=== PATIENT | male | born 1950 | race Caucasian/White ===

== ENCOUNTER 2017-10-16 20:38 | Inpatient (IN) | payer MEDICARE ==
[2017-10-16] MEDS ORDERED: Triamcinolone Acetonide 0.1% Crm 15 GM Tube TOP PRN (22:27)
[2017-10-16] MEDS ORDERED: diphenhydrAMINE 25 MG Cap PO PRN (22:27)
[2017-10-16] MEDS ORDERED: Acetaminophen 325 MG Tab PO SCH (22:30)
[2017-10-16] MEDS ORDERED: Zolpidem 5 MG Tab PO PRN (22:32)
[2017-10-16] MEDS ORDERED: Albuterol 0.083% 2.5 MG/3 ML Neb Soln NEB PRN (22:32)
[2017-10-16] MEDS ORDERED: LORazepam 2 MG/ML MDV IV PRN (22:32)
[2017-10-16] MEDS ORDERED: Ondansetron 4 MG/2 ML SDV IV PRN (22:32)
[2017-10-16] MEDS ORDERED: Morphine 2 MG/ML Syringe IVPUSH PRN (22:32)
[2017-10-16] MEDS ORDERED: Melatonin 3 MG Tab PO PRN (22:32)
[2017-10-16] MEDS ORDERED: Docusate Sodium 100 MG Cap PO PRN (22:32)
[2017-10-16] MEDS ORDERED: Ondansetron 4 MG Tab.DIS PO PRN (22:32)
[2017-10-16] MEDS ORDERED: Bisacodyl 5 MG Tab PO PRN (22:32)
[2017-10-16] MEDS ORDERED: Vancomycin 1 GM SDV IV SCH (23:00)
[2017-10-16] MEDS ORDERED: Acetaminophen 325 MG Tab PO PRN (23:00)
[2017-10-16] MEDS: Sodium Chloride 0.9% 1,000 ML IV SCH (23:33)
[2017-10-17] MEDS ORDERED: Vancomycin 1,000 MG SDV ONE (01:28)
[2017-10-17] MEDS ORDERED: Sodium Chloride 0.9% 250 ML ONE (01:29)
[2017-10-17] MEDS ORDERED: Dextrose 5% in Water 250 ML ONE (01:33)
--- NOTE | 2017-10-17 01:52 | PCM.HP ---
H&P History of Present Illness - General Date of Service: 10/16/17 Admit Problem/Dx: Admission Diagnosis/Problem Admission Diagnosis/Problem Pneumonia involving left lung Source of Information: Patient, EMS Notes Reviewed, Care Home Records, Provider History Limitations: Reports: Other (mood disorder, conversion disorder with seizures,ocd) - History of Present Illness Initial Comments - Free Text/Narative: Pneumonia, hospital acquired: This is a 67 year old male who was hospitalized for status epileptics, had an intubation, had elevated temps, had two days of Meropenum, improved, was discharge back to [facility] on 10/15/2017. While at the [facility] began to have fevers, unsteady gait. Staff report 3 falls, confusion, refused breakfast, lunch or any fluids today at the [facility]. He was noted to be very weak and lethargy. He was also started on Dilantin at the hospital but has not had any since arrival at the [facility], due lack of supply at Pharmacy Dept. No antibiotic were give at discharge. EMS was dispatched to transfer to [facility]/ER. At [facility] ER, He had a negative CT of Head, chest xray concerns for left lower lobe infiltrate. labs; wbc 4.5, lactic acid 1.2, glucose 80, bun 11.0, gfr >60, Na+ 136, K+ 3.9, Cl 98, Co2 29.8, Ca++ 9.0, total Protein 7.9, CRP 4.30. At ER given IV Levofloxacin 750mg, IV Ceftazidime., One liter of IV fluids , Due to [facility] being full, he was transferred via EMS to [facility] for further care and treatment. Dr. Miguel accepting Medical Provider. Onset of Symptoms: Reports: Gradual Duration of Symptoms: Reports: Day(s): (2) Location: Reports: Generalized Quality: Reports: Other (unable to give response.) Improves with: Reports: None Worsens with: Reports: None Associated Symptoms: Reports: Fever/Chills, Weakness - Related Data Allergies/Adverse Reactions: Allergies Allergy/AdvReac Type Severity Reaction Status Date / Time oxycodone Allergy Cannot Verified 10/16/17 21:57 Remember Penicillins Allergy Cannot Verified 10/16/17 21:57 Remember Home Medications: Home Meds Acetaminophen [Tylenol Arthritis Pain] 650 mg PO BID 10/16/17 [History] Acetaminophen [Tylenol] 325 mg PO Q4H 10/16/17 [History] Calcium Carbonate/Vitamin D3 [Calcium 600 + Vit D 400 Tablet] 1 tab PO BID 10/16 [History] Cetirizine [ZyrTEC] 10 mg PO DAILY 10/16/17 [History] FLUoxetine HCl [Fluoxetine HCl] 40 mg PO DAILY 10/16/17 [History] Lansoprazole [Prevacid] 30 mg PO DAILY 10/16/17 [History] Phenytoin [Dilantin-125 Susp] 4 ml PO TID 10/16/17 [History] Triamcinolone Acetonide [IJD: Triamcinolone Acetonide 0.1% Crm] 15 gm .XX Q12H PRN 10/16/17 [History] diphenhydrAMINE HCl [Banophen] 25 mg PO Q4H PRN 10/16/17 [History] Past Medical History HEENT History: Reports: Other (See Below) Other HEENT History: wears glasses Gastrointestinal History: Reports: Cholelithiasis, GERD, Hemorrhoids Genitourinary History: Reports: Urinary Incontinence Musculoskeletal History: Reports: Osteoporosis Neurological History: Reports: Seizure Psychiatric History: Reports: Anxiety, Depression, Eating Disorders, OCD, Other (See Below) Other Psychiatric History: mood disorder Endocrine/Metabolic History: Reports: Osteoporosis - Infectious Disease History Infectious Disease History: Reports: MRSA - Past Surgical History HEENT Surgical History: Reports: None GI Surgical History: Reports: Cholecystectomy, Colonoscopy, EGD, Esophageal Dilatation Male Surgical History: Reports: Vasectomy Endocrine Surgical History: Reports: Thyroidectomy Neurological Surgical History: Reports: None Musculoskeletal Surgical History: Reports: None Social & Family History - Family History Family Medical History: Unobtainable - Tobacco Use Smoking Status *Q: Never Smoker Second Hand Smoke Exposure: No - Caffeine Use Caffeine Use: Reports: None - Recreational Drug Use Recreational Drug Use: No - Living Situation & Occupation Living situation: Reports: Occupation: Disabled ( for 24 years, no children. lives at another home.) H&P Review of Systems - Review of Systems: Review Of Systems: ROS reveals no pertinent complaints other than HPI. General: Reports: ROS unobtainable (difficult to obtain due to mental capabilities. ), Fever, Chills, Weakness, Decreased Appetite Skin: Reports: Bruising Neurological: Reports: Pre-Existing Deficit, Weakness Exam - Exam Exam: See Below - Vital Signs Vital Signs: Last Vital Signs Temp 37.4 C 10/17/17 01:28 Pulse 85 10/17/17 01:28 Resp 14 10/17/17 01:28 BP 116/74 10/17/17 01:28 Pulse Ox 96 10/17/17 01:28 Weight: 56.245 kg - Exam General: Alert, Cooperative, Mild Distress HEENT: Conjunctiva Clear, Mucosa Moist & [place], Nares Patent, Pupils Equal, Pupils Reactive Neck: Supple, Trachea Midline Lungs: Normal Respiratory Effort, Decreased Breath Sounds Cardiovascular: Regular Rate, Normal S1, Normal S2, Other (loud murmur noted) GI/Abdominal Exam: Normal Bowel Sounds, Soft, Non-Tender, No Organomegaly, No Distention, No Mass, Pelvis Stable (Male) Exam: Deferred Rectal (Males) Exam: Deferred Back Exam: Full Range of Motion Extremities: Normal Inspection, Normal Range of Motion, Non-Tender, No Pedal Edema, Normal Capillary Refill, Pedal Edema Peripheral Pulses: 2+: Radial (L), Radial (R) Skin: Other (injury bruising and mild abrasion noted to forehead, right hand, ) Neurological: Reflexes Equal Bilateral Neuro Extensive - Motor, Sensory, Reflexes: Motor/Sensory Deficits Psychiatric: Alert, Labile Mood (very flat affect) *Q Meaningful Use (ADM) - VTE *Q VTE Criteria *Q: - Stroke *Q Stroke Criteria *Q: - AMI *Q AMI Criteria *Q: - Problem List (1) Pneumonia involving left lung SNOMED Code(s): 932738426 Status: Acute Priority: Medium Current Visit: Yes Qualifiers: Pneumonia type: due to unspecified organism Lung location: lower lobe of lung Qualified Code(s): J18.1 - Lobar pneumonia, unspecified organism (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 SNOMED Code(s): 77856408 ICD Code: F06.30 - MOOD DISORDER DUE TO KNOWN PHYSIOLOGICAL CONDITION, UNSP Status: Acute Priority: Medium Current Visit: Yes (3) Conversion disorder SNOMED Code(s): 92015860 ICD Code: F44.9 - DISSOCIATIVE AND CONVERSION DISORDER, UNSPECIFIED Status : Acute Priority: Medium Current Visit: Yes (4) Osteoarthritis SNOMED Code(s): 463590731 ICD Code: M19.90 - UNSPECIFIED OSTEOARTHRITIS, UNSPECIFIED SITE Status: Acute Priority: Medium Current Visit: Yes Qualifiers: Osteoarthritis location: multiple joints Osteoarthritis type: unspecified Qualified Code(s): M15.9 - Polyosteoarthritis, unspecified (5) Major depressive disorder, recurrent episode, unspecified Status: Acute Current Visit: Yes Qualifiers: Major depression episode severity: moderate Qualified Code(s): F33.1 - Major depressive disorder, recurrent, moderate (6) Epilepsy SNOMED Code(s): 27633050 ICD Code: G40.909 - EPILEPSY, UNSP, NOT INTRACTABLE, WITHOUT STATUS EPILEPTICUS Status: Acute Priority: Low Current Visit: Yes Qualifiers: Epilepsy type: other generalized Intractability: not intractable (7) Generalized anxiety disorder SNOMED Code(s): 73680382 ICD Code: F41.1 - GENERALIZED ANXIETY DISORDER Status: Acute Priority: High Current Visit: Yes Onset Date: ~10/16/17 (8) Obsessive compulsive disorder SNOMED Code(s): 479508228 ICD Code: F42.9 - OBSESSIVE-COMPULSIVE DISORDER, UNSPECIFIED Status: Acute Priority: Low Current Visit: Yes Qualifiers: Obsessive-compulsive disorder type: unspecified Qualified Code(s): F42.9 - Obsessive-compulsive disorder, unspecified (9) Eating disorder, unspecified SNOMED Code(s): 64529834 ICD Code: F50.9 - EATING DISORDER, UNSPECIFIED Status: Acute Priority: Low Current Visit: Yes (10) Chronic GERD SNOMED Code(s): 374450298 ICD Code: K21.9 - GASTRO-ESOPHAGEAL REFLUX DISEASE WITHOUT ESOPHAGITIS Status: Acute Priority: Low Current Visit: Yes (11) Gastro-esophageal reflux disease without esophagitis SNOMED Code(s): 139907567 ICD Code: K21.9 - GASTRO-ESOPHAGEAL REFLUX DISEASE WITHOUT ESOPHAGITIS Status: Acute Priority: Low Current Visit: Yes Problem List Initiated/Reviewed/Updated: Yes Orders Last 24hrs: Active Orders 24 hr Category Date Time Status Patient Status [ADT] Routine ADT 10/16/17 22:32 Active Bedrest Bedside Commode [RC] ASDIRECTED Care 10/16/17 22:32 Active Intake and Output [RC] QSHIFT Care 10/16/17 22:33 Active Notify Provider Vital Signs [RC] ASDIRECTED Care 10/16/17 22:32 Active Oxygen Therapy [RC] PRN Care 10/16/17 22:32 Active Pulse Oximetry [RC] PRN Care 10/16/17 22:33 Active RT Aerosol Therapy [RC] ASDIRECTED Care 10/16/17 22:36 Active VTE/DVT Education [RC] Per Unit Routine Care 10/16/17 22:32 Active Vital Signs [RC] Q4H Care 10/16/17 22:32 Active OT Evaluation and Treatment [CONS] Routine Cons 10/16/17 22:32 Active PT Evaluation and Treatment [CONS] Routine Cons 10/16/17 22:32 Active Mechanical Soft Diet [DIET] Diet 10/16/17 Breakfast Active Chest 2V [CR] AM Exams 10/17/17 05:11 Ordered CBC WITH AUTO DIFF [HEME] AM Lab 10/17/17 05:11 Ordered COMPREHENSIVE METABOLIC PN,CMP [CHEM] AM Lab 10/17/17 05:11 Ordered DILANTIN,PHENYTOIN [CHEM] Routine Lab 10/17/17 05:10 Ordered VANCOMYCIN TROUGH [CHEM] Routine Lab 10/18/17 10:30 Ordered Acetaminophen [Tylenol] Med 10/16/17 23:00 Active 650 mg PO Q4H PRN Albuterol [Proventil Neb Soln] Med 10/16/17 22:32 Active 2.5 mg NEB Q4H PRN Albuterol/Ipratropium [DuoNeb 3.0-0.5 MG/3 ML] Med 10/17/17 07:00 Active 3 ml NEB QIDRT Bisacodyl [Dulcolax] Med 10/16/17 22:32 Active 5 mg PO DAILY PRN Calcium Carbonate/Vitamin D3 [Caltrate 600+D 1500 MG- Med 10/17/17 09:00 Active 400 Units] 1 tab PO BID Cetirizine [ZyrTEC] Med 10/17/17 09:00 Active 10 mg PO DAILY Docusate Sodium [Colace] Med 10/16/17 22:32 Active 100 mg PO BID PRN FLUoxetine [PROzac] Med 10/17/17 09:00 Active 40 mg PO DAILY LORazepam [Ativan] Med 10/16/17 22:32 Active 1 mg IV Q6H PRN Levofloxacin/Dextrose 5%-Water [Levaquin in D5W 500 MG/ Med 10/17/17 17:00 Active 100 ML] 500 mg Premix Bag 1 bag IV Q24H Melatonin Med 10/16/17 22:32 Active 6 mg PO BEDTIME PRN Morphine Med 10/16/17 22:32 Active 2 mg IVPUSH Q2H PRN Ondansetron [Zofran ODT] Med 10/16/17 22:32 Active 4 mg PO Q6H PRN Ondansetron [Zofran] Med 10/16/17 22:32 Active 4 mg IV Q4H PRN Pantoprazole [ProTONIX IV] Med 10/17/17 09:00 Active 40 mg IVPUSH DAILY Phenytoin [Dilantin-125 Susp] Med 10/17/17 09:00 Active 100 mg PO TID Sodium Chloride 0.9% [Normal Saline] 1,000 ml Med 10/16/17 22:45 Active IV ASDIRECTED Triamcinolone Acetonide [Triamcinolone Acetonide 0.1% Med 10/16/17 22:27 Active Crm] 0 gm TOP Q12H PRN Vancomycin Med 10/16/17 23:00 Pending 1 gm IV .PHARMACY TO DOSE Vancomycin 1,000 mg Med 10/16/17 23:00 Active Dextrose 5% in Water 250 ml IV Q12H Zolpidem [Ambien] Med 10/16/17 22:32 Active 5 mg PO BEDTIME PRN cefTAZidime [Fortaz] 1 gm Med 10/17/17 02:00 Active Sodium Chloride 0.9% [Normal Saline] 50 ml IV Q8H diphenhydrAMINE [Benadryl] Med 10/16/17 22:27 Active 25 mg PO Q4H PRN Sequential Compression Device [OM.PC] Per Unit Routine Oth 10/16/17 22:34 Ordered Resuscitation Status Routine Resus Stat 10/16/17 22:32 Ordered Medication Orders Acetaminophen (Tylenol) 650 mg PO Q4H PRN PRN Reason: Pain Albuterol (Proventil Neb Soln) 2.5 mg NEB Q4H PRN PRN Reason: Shortness Of Breath/wheezing Albuterol/Ipratropium (Duoneb 3.0-0.5 Mg/3 Ml) 3 ml NEB QIDRT DREW Bisacodyl (Dulcolax) 5 mg PO DAILY PRN PRN Reason: Constipation Calcium Carbonate (Caltrate 600+D 1500 Mg-400 Units) 1 tab PO BID [facility] Cetirizine HCl (Zyrtec) 10 mg PO DAILY [facility] Diphenhydramine HCl (Benadryl) 25 mg PO Q4H PRN PRN Reason: Itching Docusate Sodium (Colace) 100 mg PO BID PRN PRN Reason: Constipation Fluoxetine HCl (Prozac) 40 mg PO DAILY [facility] Ceftazidime 1 gm/ Sodium (Chloride) 50 mls @ 100 mls/hr IV Q8H [facility] Levofloxacin/Dextrose 500 mg/ (Premix) 100 mls @ 100 mls/hr IV Q24H [facility] Sodium Chloride (Normal Saline) 1,000 mls @ 125 mls/hr IV ASDIRECTED [facility] Last Admin: 10/16/17 23:33 Dose: 125 mls/hr Vancomycin HCl 1,000 mg/ (Dextrose/Water) 250 mls @ 166.667 mls/hr IV Q12H [facility] Lorazepam (Ativan) 1 mg IV Q6H PRN PRN Reason: Nausea/Vomiting Melatonin (Melatonin) 6 mg PO BEDTIME PRN PRN Reason: Insomnia Morphine Sulfate (Morphine) 2 mg IVPUSH Q2H PRN PRN Reason: Pain (severe 7-10) Ondansetron HCl (Zofran Odt) 4 mg PO Q6H PRN PRN Reason: Nausea able to take PO Ondansetron HCl (Zofran) 4 mg IV Q4H PRN PRN Reason: Nausea/Vomiting Pantoprazole Sodium (Protonix Iv) 40 mg IVPUSH DAILY [facility] Phenytoin Sodium (Dilantin-125 Susp) 100 mg PO TID [facility] Triamcinolone Acetonide (Triamcinolone Acetonide 0.1% Crm) 0 gm TOP Q12H PRN PRN Reason: Itching Vancomycin HCl (Vancomycin) 1 gm IV .PHARMACY TO DOSE [facility] Zolpidem Tartrate (Ambien) 5 mg PO BEDTIME PRN PRN Reason: Sleep Assessment/Plan Comment:: ASSESSMENT / PLAN Pneumonia, hospital acquired: This is a 67 year old male who was hospitalized for status epileptics, had intubation, elevated temps, had two days of Meropenum , improved, was discharge back to [facility] on 2016. While at the [facility] began to have fevers, unsteady gait. Staff report 3 falls, confusion, refused breakfast, lunch or any fluids today at the [facility]. He was noted to be very weak and lethargy. He was also started on Dilantin at the hospital but has not had any since arrival at the [facility], due lack of supply at Pharmacy Dept. No antibiotic were give at discharge. Today , EMS was dispatched to transfer to [facility]/ER. At [facility] ER, He had a negative CT of Head, Chest Xray concerns for left lower lobe infiltrate. labs; wbc 4.5, lactic acid 1.2, glucose 80, bun 11.0, gfr >60, Na+ 136, K+ 3.9, Cl 98, Co2 29.8, Ca++ 9.0, total Protein 7.9, CRP 4.30. At ER given IV Levofloxan 750mg, IV Ceftapine., One liter of IV fluids, Due to [facility] being full, he was transferred via EMS to [facility] for further care and treatment Dr. Miguel accepting Medical Provider. Pneumonia; left lower lobe, community aquired. -Admit to [address] [place] [address] for further monitoring -IV Fluids for rehydration NS at 125 mL per hour -IV Antibiotic; Levaquin 500 mg IV every 24 hours -IV Vancomycin 1 gram every 24 hours, pharmacy to dose -IV Ceftazidime 1 gram IV every 8 hrs -albuterol neb premix solution every 4 hours prn -duo nebs every 6 hours scheduled -Advise to notify nurses of any chest pain or other symptoms -And a.m. labs: CBC, BMP, lactic acid. Mood Disorder, conversion disorder with seizures or convulsions -Dilantin restarted in ER, given 100mg tid -Dilantin level in am -continue all medications without changes. Maintenance issues -Orders home meds: -Nutrition: soft diet -Newman catheter not indicated at this time -DVT: SCD -PPI; IV Protonix 40mg daily -consult OT for discharge planning -consult PT for strengthening. CODE STATUS: FULL Admission status: Admit to [address] [place] [address] Admission justification. This patient will be admitted for inpatient services and is medically appropriate meeting medical necessity for inpatient admission as outlined in my documentation. I reasonably expect the patient will require inpatient services that span. Time over 2 midnights. I reasonably expect this patient to be discharged or transferred within 96 hours after admission to the critical access [facility]. Disposition; [place], [place]. Primary care provider: French Lopez MD Hospitalist: Dr. Miguel
[2017-10-17] MEDS: cefTAZidime 1 GM in Sodium Chloride 0.9% 50 ML IV SCH ×2 (03:36→10:03)
[2017-10-17] MEDS: Albuterol/Ipratropium 3.0-0.5 MG/3 ML Neb Soln NEB SCH ×4 (08:00→21:17)
[2017-10-17] MEDS ORDERED: Non-Formulary Medication 1 Each (Acetaminophen [Tylenol Arthritis Pain] 650 MG) PO SCH (09:00)
[2017-10-17] MEDS ORDERED: Pantoprazole 40 MG Vial IVPUSH SCH (09:00)
[2017-10-17] MEDS: FLUoxetine 20 MG Cap PO SCH (09:05)
[2017-10-17] MEDS: Cetirizine 10 MG Tab PO SCH (09:05)
[2017-10-17] MEDS: Calcium Carbonate/Vitamin D3 1500 MG-400 Units Tab PO SCH ×2 (09:05→21:15)
[2017-10-17] MEDS: Phenytoin 25 MG/1 ML Susp ML 237 ML Bottle PO SCH ×3 (09:05→21:15)
[2017-10-17] MEDS: Sodium Chloride 0.9% 1,000 ML IV SCH (09:12)
--- NOTE | 2017-10-17 12:02 | CR ---
Low lung volumes. Mild cardiomegaly. Convex to the at the right denilson may relate to prominent aortic r oot consider comparison to prior examinations. Tortuous descending thoracic aorta. No focal consolida tion.
--- NOTE | 2017-10-17 12:55 | PCM.PN ---
- General Info Date of Service: 10/17/17 Subjective Update: Mr. Aguirre is a 67-year-old gentleman who is admitted as a direct admission from the [place] emergency department. He had been hospitalized in [place] because of status epilepticus. During that hospitalization did develop a fever and was treated for 2 days with IV meropenem. On discharge he was not placed on antibiotics, in the 36 hour period from discharge he had been noted to be very weak, with several falls. He was brought into the emergency department when he was noted to have a temperature elevation. Evaluation in the emergency department in [place] was generally unremarkable, normal white blood cell count, CRP was 4, chest x-ray was thought to show possible infiltrate. No beds were available there so he was transferred here for further management. On admission was started on broad-spectrum IV antibiotic therapy for probable hospital- acquired pneumonia with vancomycin, ceftazidime, and levofloxacin. Blood cultures had been obtained in [place] and are pending at this time. He is been stable since admission with good vital signs and has been afebrile. White blood cell count this morning remains normal and he has not had significant symptoms of respiratory tract infection. Chest x-ray was repeated this morning after hydration and shows no obvious infiltrates per radiologic report. Functional Status: Reports: Pain Controlled, Tolerating Diet, Ambulating - Review of Systems General: Reports: Weakness. Denies: Fever, Chills Pulmonary: Reports: No Symptoms Cardiovascular: Reports: No Symptoms Gastrointestinal: Reports: No Symptoms Musculoskeletal: Reports: Joint Pain (Left knee) - Patient Data Vitals - Most Recent: Last Vital Signs Temp 97.3 F 10/17/17 10:52 Pulse 76 10/17/17 11:25 Resp 18 10/17/17 10:52 BP 105/72 10/17/17 10:52 Pulse Ox 96 10/17/17 10:52 Weight - Most Recent: 124 lb I&O - Last 24 Hours: Intake & Output 10/16/17 10/17/17 10/17/17 22:59 06:59 14:59 Intake Total 50 300 Balance 50 300 Lab Results Last 24 Hours: Laboratory Results - last 24 hr 10/17/17 10/17/17 10/17/17 Range/Units 05:10 05:10 05:10 WBC 4.1 L (4.5-11.0) K/uL RBC 4.40 (4.30-5.90) M/uL Hgb 12.6 (12.0-15.0) g/dL Hct 40.4 (40.0-54.0) % MCV 92 (80-98) fL MCH 29 (27-31) pg MCHC 31 L (32-36) % Plt Count 139 L (150-400) K/uL Neut % (Auto) 43 (36-66) % Lymph % (Auto) 27 (24-44) % [place] % (Auto) 25 H (2-6) % Eos % (Auto) 4 (2-4) % Baso % (Auto) 1 (0-1) % Sodium 135 L (140-148) mmol/L Potassium 4.3 (3.6-5.2) mmol/L Chloride 99 L (100-108) mmol/L Carbon Dioxide 28 (21-32) mmol/L Anion Gap 12.3 (5.0-14.0) mmol/L BUN 12 (7-18) mg/dL Creatinine 1.1 (0.8-1.3) mg/dL Est Cr Clr Drug Dosing 50.42 mL/min Estimated GFR (MDRD) > 60 (>60) Glucose 74 (74-106) mg/dL Calcium 8.0 L (8.5-10.1) mg/dL Total Bilirubin 0.4 (0.2-1.0) mg/dL AST 30 (15-37) U/L ALT 19 (12-78) U/L Alkaline Phosphatase 93 (46-116) U/L Total Protein 6.5 (6.4-8.2) g/dL Albumin 2.8 L (3.4-5.0) g/dL Globulin 3.7 H (2.3-3.5) g/dL Albumin/Globulin Ratio 0.8 L (1.2-2.2) Phenytoin 13.9 (10.0-20.0) ug/mL Med Orders - Current: Current Medications Acetaminophen (Tylenol) 650 mg PO Q4H PRN PRN Reason: Pain Albuterol (Proventil Neb Soln) 2.5 mg NEB Q4H PRN PRN Reason: Shortness Of Breath/wheezing Albuterol/Ipratropium (Duoneb 3.0-0.5 Mg/3 Ml) 3 ml NEB QIDRT [facility] Last Admin: 10/17/17 11:23 Dose: 3 ml Bisacodyl (Dulcolax) 5 mg PO DAILY PRN PRN Reason: Constipation Calcium Carbonate (Caltrate 600+D 1500 Mg-400 Units) 1 tab PO BID [facility] Last Admin: 10/17/17 09:05 Dose: 1 tab Cetirizine HCl (Zyrtec) 10 mg PO DAILY [facility] Last Admin: 10/17/17 09:05 Dose: 10 mg Diphenhydramine HCl (Benadryl) 25 mg PO Q4H PRN PRN Reason: Itching Docusate Sodium (Colace) 100 mg PO BID PRN PRN Reason: Constipation Fluoxetine HCl (Prozac) 40 mg PO DAILY [facility] Last Admin: 10/17/17 09:05 Dose: 40 mg Levofloxacin/Dextrose 500 mg/ (Premix) 100 mls @ 100 mls/hr IV Q24H [facility] Lorazepam (Ativan) 1 mg IV Q6H PRN PRN Reason: Nausea/Vomiting Melatonin (Melatonin) 6 mg PO BEDTIME PRN PRN Reason: Insomnia Morphine Sulfate (Morphine) 2 mg IVPUSH Q2H PRN PRN Reason: Pain (severe 7-10) Ondansetron HCl (Zofran Odt) 4 mg PO Q6H PRN PRN Reason: Nausea able to take PO Ondansetron HCl (Zofran) 4 mg IV Q4H PRN PRN Reason: Nausea/Vomiting Pantoprazole Sodium (Protonix) 40 mg PO ACBREAKFAST [facility] Phenytoin Sodium (Dilantin-125 Susp) 100 mg PO TID [facility] Last Admin: 10/17/17 09:05 Dose: 100 mg Triamcinolone Acetonide (Triamcinolone Acetonide 0.1% Crm) 0 gm TOP Q12H PRN PRN Reason: Itching Zolpidem Tartrate (Ambien) 5 mg PO BEDTIME PRN PRN Reason: Sleep Discontinued Medications Acetaminophen (Tylenol) 325 mg PO Q4H [facility] Last Admin: 10/16/17 23:04 Dose: Not Given Ceftazidime 1 gm/ Sodium (Chloride) 50 mls @ 100 mls/hr IV Q8H [facility] Last Admin: 10/17/17 10:03 Dose: 100 mls/hr Sodium Chloride (Normal Saline) 1,000 mls @ 125 mls/hr IV ASDIRECTED [facility] Last Admin: 10/17/17 09:12 Dose: 125 mls/hr Vancomycin HCl 1,000 mg/ (Dextrose/Water) 250 mls @ 166.667 mls/hr IV Q12H [facility] Last Admin: 10/17/17 02:31 Dose: Not Given Sodium Chloride (Normal Saline) Confirm Administered Dose 250 mls @ as directed .ROUTE .STK-MED ONE Stop: 10/17/17 01:30 Last Admin: 10/17/17 02:31 Dose: Not Given Dextrose/Water (Dextrose 5% In Water) Confirm Administered Dose 250 mls @ as directed .ROUTE .STK-MED ONE Stop: 10/17/17 01:34 Last Admin: 10/17/17 01:53 Dose: 250 ml Vancomycin HCl 1 gm/ Sodium (Chloride) 250 mls @ 167 mls/hr IV Q12H [facility] Last Admin: 10/17/17 11:06 Dose: 167 mls/hr Non-Formulary Medication (Acetaminophen [Tylenol Arthritis Pain]) 650 mg PO BID [facility] Pantoprazole Sodium (Protonix Iv) 40 mg IVPUSH DAILY [facility] Last Admin: 10/17/17 09:34 Dose: 40 mg Vancomycin HCl (Vancomycin) 1 gm IV .PHARMACY TO DOSE [facility] Stop: 10/17/17 10:00 Vancomycin HCl (Vancomycin) Confirm Administered Dose 1,000 mg .ROUTE .STK-MED ONE Stop: 10/17/17 01:29 Last Admin: 10/17/17 01:52 Dose: 1,000 mg - Exam Quality Assessment: DVT Prophylaxis General: Alert, Cooperative, No Acute Distress Lungs: Clear to Auscultation, Normal Respiratory Effort Cardiovascular: Regular Rate, Regular Rhythm, Murmurs GI/Abdominal Exam: Soft, Non-Tender, No Organomegaly, No Distention Extremities: No Pedal Edema, Joint Swelling (Left knee pain) Skin: Warm, Dry - Problem List Review Problem List Initiated/Reviewed/Updated: Yes - My Orders Last 24 Hours: My Active Orders 10/17/17 12:47 Convert IV to Saline Lock [OM.PC] Routine 10/17/17 12:48 Knee 3V Lt [CR] Urgent 10/18/17 05:00 BASIC METABOLIC PANEL,BMP [CHEM] Timed CBC WITH AUTO DIFF [HEME] Timed 10/18/17 10:30 VANCOMYCIN TROUGH [CHEM] Routine - Plan Plan:: ASSESSMENT / PLAN Fever-on review no evidence of infiltrate on chest x-ray -Saline lock IV -IV Antibiotic; Levaquin 500 mg IV every 24 hours -Discontinue IV vancomycin and Ceptaz edema -albuterol neb premix solution every 4 hours prn -duo nebs every 6 hours scheduled -Advise to notify nurses of any chest pain or other symptoms -Blood cultures obtained in [place] and are pending -Urinalysis Mood Disorder, conversion disorder with seizures or convulsions -Dilantin restarted in ER, given 100mg tid -Dilantin level in am -continue all medications without changes. Maintenance issues -Orders home meds: -Nutrition: soft diet -Newman catheter not indicated at this time -DVT: SCD -PPI; IV Protonix 40mg daily -consult OT for discharge planning -consult PT for strengthening. CODE STATUS: FULL Admission status: Admit to [address] [place] [address]. This patient will be admitted for inpatient services and is medically appropriate meeting medical necessity for inpatient admission as outlined in my documentation. I reasonably expect the patient will require inpatient services that span. Time over 2 midnights. I reasonably expect this patient to be discharged or transferred within 96 hours after admission to the critical access hospital. Disposition; [facility] [place], [place]. Primary care provider: French Lopez MD Hospitalist: Dr. Miguel
--- NOTE | 2017-10-17 14:19 | CR ---
Mild medial compartment joint space narrowing. No evidence for fracture.
[2017-10-17] MEDS ORDERED: Levofloxacin/Dextrose 5%-Water 500 MG in Premix Bag 1 BAG IV SCH (17:00)
[2017-10-18] MEDS: Albuterol/Ipratropium 3.0-0.5 MG/3 ML Neb Soln NEB SCH ×2 (07:17→11:08)
[2017-10-18] MEDS ORDERED: Pantoprazole 40 MG Tab.CR PO SCH (07:30)
[2017-10-18] MEDS: Calcium Carbonate/Vitamin D3 1500 MG-400 Units Tab PO SCH (08:29)
[2017-10-18] MEDS: Phenytoin 25 MG/1 ML Susp ML 237 ML Bottle PO SCH (08:29)
[2017-10-18] MEDS: Cetirizine 10 MG Tab PO SCH (08:30)
[2017-10-18] MEDS: FLUoxetine 20 MG Cap PO SCH (08:30)
--- NOTE | 2017-10-18 10:14 | PCM.DCSUM1 ---
Discharge Summary - Hospital Course Brief History: Patient is a 67-year-old gentleman who was admitted as a direct admission from the emergency department in [place] because of fever and weakness with falls. - Discharge Data Discharge Date: 10/18/17 Discharge Disposition: DC/Tfer to [facility] Ex [facility] Condition: Fair - Discharge Diagnosis/Problem(s) (1) Fever SNOMED Code(s): 682023855 ICD Code: R50.9 - FEVER, UNSPECIFIED Status: Acute Current Visit: Yes (2) Epilepsy SNOMED Code(s): 93573416 ICD Code: G40.909 - EPILEPSY, UNSP, NOT INTRACTABLE, WITHOUT STATUS EPILEPTICUS Status: Chronic Priority: Low Current Visit: No Qualifiers: Epilepsy type: other generalized Intractability: not intractable - Patient Summary/Data Consults: Consultations 10/16/17 22:32 OT Evaluation and Treatment [CONS] Routine Please Evaluate and Treat. OT Reason for Consult: Discharge Planning This query below is only for informational purposes and is not editable. Admission Diagnosis/Problem: Pneumonia involving left lung PT Evaluation and Treatment [CONS] Routine Please Evaluate and Treat. PT Reason for Consult: Strengthening This query below is only for informational purposes and is not editable. Admission Diagnosis/Problem: Pneumonia involving left lung Hospital Course: Erick is a 67-year-old gentleman, with recently been hospitalized at [facility] with status epilepticus. He had been intubated and mechanically ventilated while his seizure disorder was being treated.2 days prior to discharge was noted to have temperature elevation was felt to have possible pulmonary infiltrate. He was treated with IV meropenem and had no further temperature elevations. Antibiotics were discontinued at the time of discharge. He was discharged back to his previous living situation in a [facility] in [place]. While there he was noted to be very weak and had at least 3 falls in the 24 hour period that he was at home. He also had a temperature elevation that was documented at the [facility] when he was referred to the emergency department in [place] for further evaluation. His white blood cell count was normal and he was noted to be afebrile in the emergency department. Chest x-ray was felt to show evidence of a pulmonary infiltrate, no beds were available at that facility and he was transferred here for further evaluation and management. While here he remained afebrile and was hemodynamically stable. Initially he was treated with very broad-spectrum IV antibiotic therapy with cefazolin, vancomycin, and levofloxacin. Follow-up chest x-ray after admission and hydration showed no obvious infiltrates. Urinalysis was clear showing no evidence of active infection. The day after admission the vancomycin and cefazolin were discontinued and he was continued on levofloxacin. He was seen and evaluated by physical therapy and they felt that his overall strength transfers and ambulation were close to baseline. He will be discharged home with an additional 3 days of oral antibiotic therapy with levofloxacin. Activity will be as tolerated and he will resume his usual diet. Follow-up appointment will be scheduled with his primary care provider within one week. - Patient Instructions Diet: Usual Diet as Tolerated Activity: As Tolerated Other/Special Instructions: Please schedule follow-up appointment with his primary care provider within one week. - Discharge Plan Prescriptions/Med Rec: Levofloxacin 500 mg PO DAILY #3 tablet Home Medications: Home Meds Acetaminophen [Tylenol Arthritis Pain] 650 mg PO BID 10/16/17 [History] Acetaminophen [Tylenol] 325 mg PO Q4H 10/16/17 [History] Calcium Carbonate/Vitamin D3 [Calcium 600-Vit D3 400 Tablet] 1 tab PO BID [History] Cetirizine [ZyrTEC] 10 mg PO DAILY 10/16/17 [History] FLUoxetine HCl [Fluoxetine HCl] 40 mg PO DAILY 10/16/17 [History] Lansoprazole [Prevacid] 30 mg PO DAILY 10/16/17 [History] Phenytoin [Dilantin-125 Susp] 4 ml PO TID 10/16/17 [History] Triamcinolone Acetonide [IJD: Triamcinolone Acetonide 0.1% Crm] 15 gm .XX Q12H PRN 10/16/17 [History] diphenhydrAMINE HCl [Banophen] 25 mg PO Q4H PRN 10/16/17 [History] Levofloxacin 500 mg PO DAILY #3 tablet 10/18/17 [Rx] - Patient Data Vitals - Most Recent: Last Vital Signs Temp 98.4 F 10/18/17 07:00 Pulse 80 10/18/17 07:17 Resp 18 10/18/17 07:00 BP 107/69 10/18/17 07:00 Pulse Ox 94 L 10/18/17 07:00 Weight - Most Recent: 124 lb 14.728 oz I&O - Last 24 hours: Intake & Output 10/17/17 10/18/17 10/18/17 22:59 06:59 14:59 Intake Total 110 Output Total 200 Balance -90 Lab Results - Last 24 hrs: Laboratory Results - last 24 hr 10/17/17 10/18/17 10/18/17 Range/Units 17:05 04:55 04:55 WBC 3.4 L (4.5-11.0) K/uL RBC 4.14 L (4.30-5.90) M/uL Hgb 12.5 (12.0-15.0) g/dL Hct 37.6 L (40.0-54.0) % MCV 91 (80-98) fL MCH 30 (27-31) pg MCHC 33 (32-36) % Plt Count 107 L (150-400) K/uL Neut % (Auto) 46 (36-66) % Lymph % (Auto) 25 (24-44) % [place] % (Auto) 26 H (2-6) % Eos % (Auto) 3 (2-4) % Baso % (Auto) 0 (0-1) % Sodium 139 L (140-148) mmol/L Potassium 4.1 (3.6-5.2) mmol/L Chloride 101 (100-108) mmol/L Carbon Dioxide 30 (21-32) mmol/L Anion Gap 12.1 (5.0-14.0) mmol/L BUN 7 (7-18) mg/dL Creatinine 0.9 (0.8-1.3) mg/dL Est Cr Clr Drug Dosing 62.08 mL/min Estimated GFR (MDRD) > 60 (>60) Glucose 83 (74-106) mg/dL Calcium 8.4 L (8.5-10.1) mg/dL Urine Color Yellow Urine Appearance Clear Urine pH 6.5 (4.5-8.0) Ur Specific [place] 1.005 L (1.008-1.030) Urine Protein Negative (NEGATIVE) mg/dL Urine Glucose (UA) Normal (NEGATIVE) mg/dL Urine Ketones 15 H (NEGATIVE) mg/dL Urine Occult Blood Negative (NEGATIVE) Urine Nitrite Negative (NEGAITVE) Urine Bilirubin Negative (NEGATIVE) Urine Urobilinogen Normal (NORMAL) mg/dL Ur Leukocyte Esterase Negative (NEGATIVE) Urine RBC 0-5 (0-5) Urine WBC 0-5 (0-5) Ur Epithelial Cells Not seen Amorphous Sediment Not seen Urine Bacteria Rare Urine Mucus Not seen Med Orders - Current: Current Medications Acetaminophen (Tylenol) 650 mg PO Q4H PRN PRN Reason: Pain Albuterol (Proventil Neb Soln) 2.5 mg NEB Q4H PRN PRN Reason: Shortness Of Breath/wheezing Albuterol/Ipratropium (Duoneb 3.0-0.5 Mg/3 Ml) 3 ml NEB QIDRT [facility] Last Admin: 10/18/17 07:17 Dose: 3 ml Bisacodyl (Dulcolax) 5 mg PO DAILY PRN PRN Reason: Constipation Calcium Carbonate (Caltrate 600+D 1500 Mg-400 Units) 1 tab PO BID [facility] Last Admin: 10/18/17 08:29 Dose: 1 tab Cetirizine HCl (Zyrtec) 10 mg PO DAILY [facility] Last Admin: 10/18/17 08:30 Dose: 10 mg Diphenhydramine HCl (Benadryl) 25 mg PO Q4H PRN PRN Reason: Itching Docusate Sodium (Colace) 100 mg PO BID PRN PRN Reason: Constipation Fluoxetine HCl (Prozac) 40 mg PO DAILY [facility] Last Admin: 10/18/17 08:30 Dose: 40 mg Levofloxacin/Dextrose 500 mg/ (Premix) 100 mls @ 100 mls/hr IV Q24H [facility] Last Admin: 10/17/17 16:43 Dose: 100 mls/hr Lorazepam (Ativan) 1 mg IV Q6H PRN PRN Reason: Nausea/Vomiting Melatonin (Melatonin) 6 mg PO BEDTIME PRN PRN Reason: Insomnia Morphine Sulfate (Morphine) 2 mg IVPUSH Q2H PRN PRN Reason: Pain (severe 7-10) Ondansetron HCl (Zofran Odt) 4 mg PO Q6H PRN PRN Reason: Nausea able to take PO Ondansetron HCl (Zofran) 4 mg IV Q4H PRN PRN Reason: Nausea/Vomiting Pantoprazole Sodium (Protonix) 40 mg PO ACBREAKFAST [facility] Last Admin: 10/18/17 08:29 Dose: 40 mg Phenytoin Sodium (Dilantin-125 Susp) 100 mg PO TID [facility] Last Admin: 10/18/17 08:29 Dose: 100 mg Triamcinolone Acetonide (Triamcinolone Acetonide 0.1% Crm) 0 gm TOP Q12H PRN PRN Reason: Itching Zolpidem Tartrate (Ambien) 5 mg PO BEDTIME PRN PRN Reason: Sleep Discontinued Medications Acetaminophen (Tylenol) 325 mg PO Q4H [facility] Last Admin: 10/16/17 23:04 Dose: Not Given Ceftazidime 1 gm/ Sodium (Chloride) 50 mls @ 100 mls/hr IV Q8H [facility] Last Admin: 10/17/17 10:03 Dose: 100 mls/hr Sodium Chloride (Normal Saline) 1,000 mls @ 125 mls/hr IV ASDIRECTED [facility] Last Admin: 10/17/17 09:12 Dose: 125 mls/hr Vancomycin HCl 1,000 mg/ (Dextrose/Water) 250 mls @ 166.667 mls/hr IV Q12H [facility] Last Admin: 10/17/17 02:31 Dose: Not Given Sodium Chloride (Normal Saline) Confirm Administered Dose 250 mls @ as directed .ROUTE .STK-MED ONE Stop: 10/17/17 01:30 Last Admin: 10/17/17 02:31 Dose: Not Given Dextrose/Water (Dextrose 5% In Water) Confirm Administered Dose 250 mls @ as directed .ROUTE .STK-MED ONE Stop: 10/17/17 01:34 Last Admin: 10/17/17 01:53 Dose: 250 ml Vancomycin HCl 1 gm/ Sodium (Chloride) 250 mls @ 167 mls/hr IV Q12H [facility] Last Admin: 10/17/17 11:06 Dose: 167 mls/hr Non-Formulary Medication (Acetaminophen [Tylenol Arthritis Pain]) 650 mg PO BID [facility] Pantoprazole Sodium (Protonix Iv) 40 mg IVPUSH DAILY [facility] Last Admin: 10/17/17 09:34 Dose: 40 mg Vancomycin HCl (Vancomycin) 1 gm IV .PHARMACY TO DOSE [facility] Stop: 10/17/17 10:00 Vancomycin HCl (Vancomycin) Confirm Administered Dose 1,000 mg .ROUTE .STK-MED ONE Stop: 10/17/17 01:29 Last Admin: 10/17/17 01:52 Dose: 1,000 mg *Q Meaningful Use (DIS) - VTE *Q VTE Criteria *Q: - Stroke *Q Stroke Criteria *Q: - AMI *Q AMI Criteria *Q:
== END 2017-10-18 13:34 | DRG 864 ==
LOC: JP.MS 20:45
PROVIDERS: ADMIT Hospitalist; ATTEND Hospitalist
DX: R50.9 Fever, unspecified (principal); F33.1 Major depressive disorder, recurrent, moderate; G40.909 Epilepsy, unspecified, not intractable, without status epilepticus; F50.9 Eating disorder, unspecified; F41.1 Generalized anxiety disorder; F44.9 Dissociative and conversion disorder, unspecified; F06.30 Mood disorder due to known physiological condition, unspecified; F42.9 Obsessive-compulsive disorder, unspecified; M15.9 Polyosteoarthritis, unspecified; Z86.14 Personal history of Methicillin resistant Staphylococcus aureus infection; K21.9 Gastro-esophageal reflux disease without esophagitis; R29.6 Repeated falls; Z88.5 Allergy status to narcotic agent; Z88.0 Allergy status to penicillin
CPT/HCPCS: 36415; 71020; 71020-26; 73562-26-LT; 73562-LT; 80048; 80053; 80185; 81001; 85025; 94640; 97162-GP; 97165-GO; A9270-GY; C9113; J0713; J1956; J3370; J7040; J7050; J7060; J7620